=== PATIENT | female | born 1955 | race African-American/Black ===

== ENCOUNTER → 2018-11-06 | Day surgery (SDC) | payer OTHER ==
--- NOTE | 2018-11-07 16:44 | PATH ---
Cytology Non-Gynecological Report Patient Name: ESTEFANI MEJIAS [facility]. Rec. #: [id number] /Age/Gender: 1955 (Age: 63) / F Account: [id number] Location: RADIOLOGY INTER Taken: 11/06/2018 Received: 11/06/2018 Reported: 11/07/2018 Physicians: Alexander Reynoso M.D. Specimen(s) Received THYROID, LEFT, FINE NEEDLE ASPIRATION Clinical History Left thyroid nodule, 2.01 x 1.47 x 1.38 cm Final Diagnosis THYROID, LEFT, FINE NEEDLE ASPIRATION: SATISFACTORY FOR EVALUATION. BETHESDA III: ATYPIA OF UNDERTERMINED SIGNIFICANCE/FOLLICULAR LESION OF UNDETERMINED SIGNIFICANCE. RARE CLUSTER OF ATYPICAL FOLLICULAR CELLS WITH MILD NUCLEAR ENLARGEMENT IN A BACKGROUND OF RARE LYMPHOCYTES. FINDING ARE BEST REPRESENTED IN THE CELL BLOCK MATERIAL; WHEREIN THE SPECIMEN IS PREDOMINANTLY COMPRISED BY AGGREGATES AND CLUSTERS OF HURTHLE CELLS, SOME COLLOID, AND FEW LYMPHOCYTES. Comment: The presence of lymphocytes raises the possibility of a Hurthle cell nodule in the setting of Chronic lymphocytic thyroiditis; however a more significant follicular lesion cannot be completely ruled out in this material. Suggest clinical, radiologic, serologic correlation and repeat sampling after an appropriate interval with material for molecular studies (Thyroseq). Findings discussed with Dr. Beck. Electronically Signed Danisha Westbrook M.D. Gross Description Received are eight direct smears, four of which are air-dried and Diff-Quik stained, and four of which are alcohol fixed and Pap stained. Also received is 20 ml of bloody formalin from which one cellblock is prepared.
== END | disposition home or self-care (01) ==
LOC: JRADIR 09:37
PROVIDERS: ATTEND Specialist
PROC: 0G9H3ZX Drainage of Right Thyroid Gland Lobe, Percutaneous Approach, Diagnostic (ICD-10-PCS; principal; 2018-11-06)
PROC: BG44ZZZ Ultrasonography of Thyroid Gland (ICD-10-PCS; 2018-11-06)
DX: E04.1 Nontoxic single thyroid nodule (principal)
CPT/HCPCS: 76942; 88173; 88305-TC

== ENCOUNTER 2021-09-03 11:41 | Emergency (ER) | payer OTHER ==
[2021-09-03 11:48] VITALS: BP 113/72; PULSE 61; TEMP 100.9; BMI 25.2
[2021-09-03] MEDS ORDERED: ACETAMINOPHEN 325 MG TABLET (FP) PO ONE (12:34)
[2021-09-03] MEDS ORDERED: ACETAMINOPHEN 325 MG TABLET (FP) ONE (13:24)
== END 2021-09-03 13:33 | disposition home or self-care (01) ==
LOC: JER 11:41
DX: U07.1 COVID-19 (principal); R50.9 Fever, unspecified; R05.1 Acute cough; R09.81 Nasal congestion
CPT/HCPCS: 71046-TC-FY; 87804; 99284-25; C9803; U0003; U0005